=== PATIENT | female | born 1980 | race Caucasian/White ===

== ENCOUNTER 2019-05-22 13:17 | Emergency (ER) | payer MEDICAID ==
[~2019-05-22] VITALS: Ht 152.4 cm; Wt 73.5 kg
[2019-05-22 13:21] VITALS: Ht 152.4 cm; Wt 73.5 kg
[2019-05-22 14:22] LABS: BASOPHIL % 0.3 % (0-2); PLATELET COUNT 282 x10^3mcL (130-400); RED CELL DISTRIBUTION WIDTH 12.6 % (11.5-14.5)
[2019-05-22 14:30] LABS: CARBON DIOXIDE 28.7 mmol/L (21-32); CHLORIDE SERUM 105 mmol/L (98-107); CREATININE SERUM 0.6 mg/dL (0.6-1.0); GFR1 > 60 mL/min; GLUCOSE SERUM 109 mg/dL (74-106); POTASSIUM SERUM 3.7 mmol/L (3.5-5.1); SODIUM SERUM 141 mmol/L (136-145)
[2019-05-22 14:35] LABS: ALBUMIN 3.6 g/dL (3.4-5.0); ALKALINE PHOSPHATASE 63 U/L (46-116); ALT/SGPT 22 U/L (14-59); AST/SGOT 10 U/L (15-37); BILIRUBIN TOTAL 1.1 mg/dL (0.20-1.00); TOTAL PROTEIN, SERUM 7.3 g/dL (6.4-8.2)
[2019-05-22 14:39] LABS: UA SPECIFIC GRAVITY 1.015 (1.005-1.035); microscopic required? YES; urine erythrocyte 2+ (NEGATIVE)
[2019-05-22 14:50] LABS: AMPHETAMINE QUAL UR NONE DETECTED (See below)
[2019-05-22 15:25] VITALS: BP 118/69
== END 2019-05-22 15:25 | disposition home or self-care (01) ==
LOC: ED 13:17
PROVIDERS: Emergency Medicine
DX: R42 Dizziness and giddiness (principal); R51 Headache; R11.2 Nausea with vomiting, unspecified
CPT/HCPCS: 36415; J8597; Q0162

== ENCOUNTER 2020-09-01 09:56 | Emergency (ER) | payer MEDICAID ==
[~2020-09-01] VITALS: Ht 154.9 cm; Wt 68.0 kg
[2020-09-01 10:03] VITALS: Ht 154.9 cm; Wt 68.0 kg
[2020-09-01 11:09] VITALS: BP 139/51
== END 2020-09-01 11:09 | disposition home or self-care (01) ==
LOC: ED 09:56
DX: N75.0 Cyst of Bartholin's gland (principal)

== ENCOUNTER 2020-09-01 21:04 | Emergency (ER) | payer MEDICAID ==
[~2020-09-01] VITALS: Ht 152.4 cm; Wt 68.0 kg
[2020-09-01 21:31] VITALS: Ht 152.4 cm; Wt 68.0 kg
[2020-09-01 22:58] VITALS: BP 112/72
== END 2020-09-01 22:40 | disposition home or self-care (01) ==
LOC: ED 21:04
DX: N75.0 Cyst of Bartholin's gland (principal)